=== PATIENT | female | born 1945 | race Caucasian/White ===

== ENCOUNTER 2017-09-27 19:00 | Emergency (ER) | payer BC, MEDICARE ==
--- NOTE | 2017-09-27 20:27 | EDM.PDOC ---
ED HPI GENERAL MEDICAL PROBLEM - General Chief Complaint: Flank Pain Stated Complaint: BLADDER INFECTION Time Seen by Provider: 09/27/17 19:55 Source of Information: Reports: Patient History Limitations: Reports: No Limitations - History of Present Illness INITIAL COMMENTS - FREE TEXT/NARRATIVE: 72 yo female presents to ER with lower ABD fullness and pressure and left flank pain. Last evening left flank pain and back ache. Pt has had kidney stones in the past. general ill feeling. afebrile. 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 Denies: Fever, Chills Respiratory: Denies: Shortness of Breath, Wheezing Cardiovascular: Denies: Chest Pain GI/Abdominal: Reports: Abdominal Pain : Reports: Flank Pain. Denies: Dysuria Skin: Denies: Rash ED EXAM, RENAL/ - Physical Exam Exam: See Below Exam Limited By: No Limitations General Appearance: Alert, WD/WN, No Apparent Distress Respiratory/Chest: No Respiratory Distress, Lungs Clear, Normal Breath Sounds. No: Crackles, Rhonchi, Wheezing Cardiovascular: Regular Rate, Rhythm, No Murmur GI/Abdominal: Soft, Other (suprapubic tenderness) Back Exam: Normal Inspection. No: CVA Tenderness (R), CVA Tenderness (L) Neurological: Alert, Oriented Psychiatric: Normal Affect, Normal Mood Skin Exam: Warm, Dry, Intact Course - Vital Signs Last Recorded V/S: Last Vital Signs Temp 37.1 C 09/27/17 19:49 Pulse 89 09/27/17 19:49 Resp 18 09/27/17 19:49 BP 160/93 H 09/27/17 19:49 Pulse Ox 95 09/27/17 19:49 - Orders/Labs/Meds Orders: Active Orders 24 hr Category Date Time Status CULTURE URINE [RM] Stat Lab 09/27/17 20:34 Received Labs: Laboratory Tests 09/27/17 Range/Units 20:27 Urine Color Yellow Urine Appearance Slightly cloudy Urine pH 5.0 (4.5-8.0) Ur Specific [place] 1.025 (1.008-1.030) Urine Protein Negative (NEGATIVE) mg/dL Urine Glucose (UA) Normal (NEGATIVE) mg/dL Urine Ketones 15 H (NEGATIVE) mg/dL Urine Occult Blood Moderate (NEGATIVE) Urine Nitrite Negative (NEGATIVE) Urine Bilirubin Negative (NEGATIVE) Urine Urobilinogen Normal (NORMAL) mg/dL Ur Leukocyte Esterase Large (NEGATIVE) Urine RBC 0-5 (0-5) Urine WBC 5-10 H (0-5) Ur Epithelial Cells Many Amorphous Sediment Not seen Urine Bacteria Moderate Urine Mucus Many Departure - Departure Time of Disposition: 20:52 Disposition: Home, Self-Care 01 Condition: Good Clinical Impression: UTI (urinary tract infection) Qualifiers: Urinary tract infection type: acute cystitis Hematuria presence: without hematuria Qualified Code(s): N30.00 - Acute cystitis without hematuria - Discharge Information Instructions: Urinary Tract Infection, Adult, [id number] Referrals: PCP,None [Primary Care Provider] - Forms: ED Department Discharge Additional Instructions: Cipro 500 twice daily for 3 days increase fluid intake with goal of 2 liters per day - My Orders Last 24 Hours: My Active Orders 09/27/17 20:34 CULTURE URINE [RM] Stat - Assessment/Plan Last 24 Hours: My Active Orders 09/27/17 20:34 CULTURE URINE [RM] Stat
== END 2017-09-27 21:02 | disposition home or self-care (01) ==
LOC: JP.ED 19:00
DX: N30.00 Acute cystitis without hematuria (principal); E78.00 Pure hypercholesterolemia, unspecified
CPT/HCPCS: 81001; 87086; 99284

== ENCOUNTER 2020-11-28 19:09 | Emergency (ER) | payer MEDICARE ==
--- NOTE | 2020-11-28 20:14 | EDM.PDOC ---
ED HPI GENERAL MEDICAL PROBLEM - General Chief Complaint: Neurological Problem Stated Complaint: HEADACHE Time Seen by Provider: 11/28/20 19:46 Source of Information: Reports: Patient History Limitations: Reports: No Limitations - History of Present Illness INITIAL COMMENTS - FREE TEXT/NARRATIVE: Presents emergency room today secondary to concern related to sinus pressure eye pressure. She states that episode started this morning bilaterally frontal and when bending over she has increased pressure across the frontal sinuses as well as her eyes bilateral she does report that she has some left eye blurring to the nurse but she did not report this to me when asked he also states that she has had a stuffy nose and was chilly today while sitting inside the AC as well as some increased fatigue she did sleep with the windows open last couple nights. 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 She stated she knew she should not have the window open as it may cause some sinus changes. She has had sinus congestion pressure and symptoms such as this in the past but it has been a while since she has had what she calls a sinus infection. 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 And her daughter who has Graves' disease has a with ALS. Patient also states that she had an episode last night of speech change and difficulty with articulation she told the nurse that lasted about 30 minutes but she told me it lasted 10 minutes she states that she was getting up to walk the dog after laying down got up and for about 10 minutes just could not quite get the words out or get them out right she states she has had previous episodes of this nature last one being last year and her primary started her on aspirin she denies having had any further evaluation for this and has not had any return to symptoms since last night PMH-HLP, R-knee arthritis, cervical DDD/arthritis Meds--simvistatin, costochondrotin, MVI, cranberry tabs, probiotic, ASA NKDA Denies tob/etoh/drug Denies any COVID infection history; has received Moderna COVID immunization, second dose July denies pain Pain Score (Numeric/FACES): 0 - Related Data Allergies Allergy/AdvReac Type Severity Reaction Status Date / Time No Known Allergies Allergy Verified 11/28/20 19:30 Home Meds: Home Meds Aspirin 81 mg PO DAILY 11/28/20 [History] Simvastatin [Zocor] 20 mg PO DAILY 11/28/20 [History] Past Medical History HEENT History: Reports: Cataract, Impaired Vision, Other (See Below) Other HEENT History: glasses Cardiovascular History: Reports: High Cholesterol Genitourinary History: Reports: Renal Calculus Other Genitourinary History: LITHOTRIPSY X 2 OF RENAL STONES 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 HOT STRIP History: HYSTERECTOMY Musculoskeletal History: Reports: Arthritis, Neck Pain, Chronic - Infectious Disease History Infectious Disease History: Reports: Chicken Pox, Measles, Mumps - Past Surgical History HEENT Surgical History: Reports: Cataract Surgery, Other (See Below) Other HEENT Surgeries/Procedures: right cataract Female Surgical History: Reports: Hysterectomy Neurological Surgical History: Reports: Scoliosis Musculoskeletal Surgical History: Reports: Other (See Below) Other Musculoskeletal Surgeries/Procedures:: DISINTEGRATION OF UPPER DISC IN NECK Social & Family History - Tobacco Use Tobacco Use Status *Q: Never Tobacco User - Caffeine Use Caffeine Use: Reports: None - Recreational Drug Use Recreational Drug Use: No ED ROS GENERAL - Review of Systems Review Of Systems: Comprehensive ROS is negative, except as noted in HPI. Constitutional: Reports: Chills HEENT: Reports: Rhinitis, Sinus Problem, Vision Change. Denies: Throat Pain, Throat Swelling, Vertigo Respiratory: Reports: No Symptoms Cardiovascular: Reports: No Symptoms Neurological: Reports: No Symptoms, Change in Speech (no current changes but reports speech change/difficulty with articulation yesterday evening) ED EXAM, GENERAL - Physical Exam Exam: See Below Exam Limited By: No Limitations General Appearance: Alert, WD/WN, No Apparent Distress Eye Exam: Bilateral Eye: EOMI, Normal Inspection, PERRL Ears: Normal External Exam, Normal Canal, Hearing Grossly Normal, Normal TMs Nose: Normal Inspection, Normal Mucosa. No: Nasal Tenderness, Nasal Swelling, Nasal Drainage Throat/Mouth: Normal Inspection, Normal Lips, Normal Teeth, Normal Gums, Normal Oropharynx, Normal Voice, No Airway Compromise Head: Atraumatic, Normocephalic Neck: Normal Inspection, Supple, Non-Tender, Full Range of Motion Respiratory/Chest: No Respiratory Distress, Lungs Clear, Normal Breath Sounds. No: Wheezing Cardiovascular: Normal Peripheral Pulses, Regular Rate, Rhythm, No Edema, No Murmur Peripheral Pulses: 2+: Radial (L), Radial (R) GI/Abdominal: Normal Bowel Sounds, Soft, Non-Tender (Female) Exam: Deferred Rectal (Female) Exam: Deferred Back Exam: Normal Inspection, Full Range of Motion Extremities: Normal Inspection, Normal Range of Motion, No Pedal Edema, Normal Capillary Refill Neurological: Alert, Oriented, CN II-XII Intact, Normal Cognition, Normal Gait, No Motor/Sensory Deficits, Other (GCS=15, neg Rhomberg, coordination intact) Psychiatric: Normal Affect, Normal Mood Skin Exam: Warm, Dry, Intact, Normal Color Course - Vital Signs Text/Narrative:: Discussed with patient today's ER findings to include my concern related speech changes that occurred last night although this was short limited I did ask her if she had heard the term TIA in the past and she states that she did have an episode of similar that she was told by her PCM was a TIA and they were started on aspirin. Discussed with patient that I recommend PCM follow-up regarding the speech change episode and she likely needs further evaluation to include possible MRI MRA carotid artery and cardiac echo patient verbalized understanding regarding this and declined CT head scan today in the emergency room when offered. Patient states her primary concern is possible sinus infection. I did discuss with her link that given new onset of symptoms in the last 24 hours likely more related to sinus congestion inflammation is unlikely to be a sinus infection as it usually takes several weeks for that to develop discussed with her my recommendation for Afrin nasal decongestion nasal steroid may use also [id number] antihistamine to help decrease any sinus congestion inflammation as well as saline nasal spray. Did discuss with patient that if symptoms continue increase in nature over the next 1 to 2 weeks then she should follow-up with her primary for further evaluation and discussion rubi balized understanding agree with plan of care ready for discharge Last Recorded V/S: Last Vital Signs Temp 98.2 F 11/28/20 19:42 Pulse 85 11/28/20 19:42 Resp 11 L 11/28/20 19:42 BP 153/83 H 11/28/20 19:42 Pulse Ox 95 11/28/20 19:42 Departure - Departure Time of Disposition: 20:18 Disposition: Home, Self-Care 01 Condition: Good Clinical Impression: Nasal sinus congestion, Elevated blood pressure reading, Episode of change in speech - Discharge Information *PRESCRIPTION DRUG MONITORING PROGRAM REVIEWED*: Not Applicable *COPY OF PRESCRIPTION DRUG MONITORING REPORT IN PATIENT OMEGA: Not Applicable Instructions: Hypertension, Adult, [id number], Transient Ischemic Attack, [id number], Sinusitis, Adult, [id number], How to Perform a Sinus Rinse, [id number] Referrals: PCP,None [Primary Care Provider] - Additional Instructions: It is recommended that you start sinus/nasal decongestant such as Afrin nasal spray (may use generic)--this can be used twice a day for the next 3-5 days to help reduce sinus congestion/pressure symptoms You may use a nasal steroid such as Flonase for longer lasting treatment of sinus congestion/inflammation--this is available over the counter (likely in same area as nasal decongestant/Afrin spray)--you can use 2 sprays twice daily for 1 week then decrease to once daily use You may use an over the counter allergy medication to help with any other sinus/nasal symptoms such as Zyrtec or Claratin (again you may use the generic as I only reference name brands so you can locate in the store) Ensure you are drinking plenty of water/fluids to stay well hydrated It is recommended for the speech change episode that you follow up in the next 3-5 days with your family doctor for further evaluation, if any return of symptoms or symptoms otherwise then please return to the ER Sepsis Event Note (ED) - Evaluation Sepsis Screening Result: No Definite Risk - Focused Exam Vital Signs: Vital Signs Temp Pulse Resp BP Pulse Ox 11/28/20 19:42 98.2 F 85 11 L 153/83 H 95 11/28/20 19:41 98.2 F 85 11 L 153/83 H 95
== END 2020-11-28 20:31 | disposition home or self-care (01) ==
LOC: JP.ED 19:09
DX: R09.81 Nasal congestion (principal); R03.0 Elevated blood-pressure reading, without diagnosis of hypertension; R47.9 Unspecified speech disturbances; E78.00 Pure hypercholesterolemia, unspecified; M19.90 Unspecified osteoarthritis, unspecified site; Z79.82 Long term (current) use of aspirin; Z79.899 Other long term (current) drug therapy
CPT/HCPCS: 99283

== ENCOUNTER 2022-10-23 11:50 | Emergency (ER) | payer MEDICARE ==
[2022-10-23 13:00] LABS: HEMATOCRIT 40.8 % (34.3-46.0); HEMOGLOBIN 13.6 g/dL (11.2-15.5); MEAN CORPUSCULAR HEMOGLOBIN 29.6 pg (31.6-35.5); MEAN CORPUSCULAR HGB CONC 33.3 g/dL (31.6-35.5); MEAN CORPUSCULAR VOLUME 88.9 fL (81.4-99.0); RED BLOOD CELL COUNT 4.59 M/uL (3.77-5.24); WHITE BLOOD CELL COUNT,WBC 6.7 K/uL (3.2-11.0)
[2022-10-23 13:17] LABS: PROTHROMBIN TIME 9.9 sec (9.2-10.6)
[2022-10-23 13:21] LABS: ALANINE AMINOTRANSFERASE,ALT 33 U/L (12-78); ALBUMIN 3.6 g/dL (3.4-5.0); ALKALINE PHOSPHATASE 100 U/L (46-116); ANION GAP 8.5 mmol/L (5.0-14.0); ASPARTATE AMNIOTRANSFERASE,AST 31 U/L (15-37); BILIRUBIN TOTAL 1.6 mg/dL (0.2-1.0); BLOOD UREA NITROGEN,BUN 19 mg/dL (7-18); CALCIUM 8.8 mg/dL (8.5-10.1); CARBON DIOXIDE,CO2 29 mmol/L (21-32); CHLORIDE,CL 103 mmol/L (100-108); CREATININE 0.5 mg/dL (0.6-1.0); EST CRCL DRUG DOSING (CG) 76.71 mL/min; ESTIMATED GFR 96 mL/min (>60); GLUCOSE RANDOM 112 mg/dL (74-106); POTASSIUM,K 3.7 mmol/L (3.6-5.2); PROTEIN TOTAL,TP 7.2 g/dL (6.4-8.2); SODIUM,NA 140 mmol/L (140-148)
[2022-10-23] MEDS ORDERED: Sodium Chloride 0.9% 10 ML Syringe FLUSH ONE (13:21)
[2022-10-23] MEDS ORDERED: Iopamidol 755 Mg/ML 100 ML Bottle IV SCH (13:30)
[2022-10-23] MEDS ORDERED: Sodium Chloride 0.9% 75 ML IV SCH (13:30)
[2022-10-23] MEDS ORDERED: Labetalol 20 MG/4 ML Syringe IVPUSH ONE ×2 (15:46→16:56)
[2022-10-23] MEDS ORDERED: Lisinopril 10 MG Tab PO ONE (16:53)
== END 2022-10-23 20:30 ==
LOC: JP.ED 11:50
DX: I63.9 Cerebral infarction, unspecified (principal); R29.701 NIHSS score 1; E78.00 Pure hypercholesterolemia, unspecified; Z79.82 Long term (current) use of aspirin; Z86.73 Personal history of transient ischemic attack (TIA), and cerebral infarction without residual deficits; Z79.899 Other long term (current) drug therapy
CPT/HCPCS: 36415; 70450; 70496; 70498; 70551; 80053; 85027; 85610; 93005; 96374; 96376; 99285; A9270; J3490